=== PATIENT | female | born 1990 | race Caucasian/White ===

== ENCOUNTER 2016-08-30 21:58 | Emergency (ER) | payer OTHER ==
[2016-08-30 22:23] VITALS: TEMP 99.5
--- NOTE | 2016-08-30 23:20 | ED ---
General Adult HPI - General Chief complaint: Needlestick/Exposure Stated complaint: NEEDLE STICK IHS Time Seen by Provider: 08/30/16 22:34 Source: patient, RN notes reviewed, old records reviewed Mode of arrival: ambulatory Limitations: no limitations - Related Data Home Medications Medication Instructions Recorded Confirmed Control 1 tab PO DAILY 08/30/16 08/30/16 Allergies Allergy/AdvReac Type Severity Reaction Status Date / Time green tea AdvReac Nausea & Verified 08/30/16 22:33 Vomiting Review of Systems ROS Statement: Those systems with pertinent positive or pertinent negative responses have been documented in the HPI. ROS Other: All systems not noted in ROS Statement are negative. Past Medical History Past Medical History: No Reported History History of Any Multi-Drug Resistant Organisms: None Reported Past Surgical History: No Surgical Hx Reported Past Psychological History: No Psychological Hx Reported Smoking Status: Never smoker Past Alcohol Use History: None Reported Past Drug Use History: None Reported General Exam Limitations: no limitations Course Vital Signs 08/30/16 22:18 Temperature 99.5 F Pulse Rate 92 Respiratory 16 Rate Blood Pressure 134/88 O2 Sat by Pulse 100 Oximetry Disposition Clinical Impression: Needle stick injury of finger, Exposure to blood Condition: Good Instructions: Body Substance Exposure (ED) Additional Instructions: Patient advised to follow up with your primary care provider. Return to the emergency department if any alarming signs or symptoms occur. Patient needs to have the blood FROM THE EXPOSED PATIENT WELL. Referrals: Emmanuelle Campuzano DO [Primary Care Provider] - 1-2 days Time of Disposition: 23:19
[2016-08-30 23:25] VITALS: BP 106/60; PULSE 62; RESP 15
[2016-08-31 08:42] LABS: Hepatitis B Surface Ag Index 0.05; Hepatitis C Virus IgG Ab Negative (Negative); Hepatitis C Virus IgG Index 0.02
== END 2016-08-30 23:24 | disposition home or self-care (01) ==
LOC: EC 21:58
DX: S69.91XA Unspecified injury of right wrist, hand and finger(s), initial encounter (principal); Z77.29 Contact with and (suspected) exposure to other hazardous substances; Z79.3 Long term (current) use of hormonal contraceptives; Z91.018 Allergy to other foods; W46.0XXA Contact with hypodermic needle, initial encounter; Y92.89 Other specified places as the place of occurrence of the external cause; Y93.89 Activity, other specified; Y99.0 Civilian activity done for income or pay
CPT/HCPCS: 36415; 86803; 87340; 87390; 99283